=== PATIENT | female | born 1980 | race Two or more races ===

== ENCOUNTER 2016-08-28 07:08 | Outpatient (CLI) | payer MEDICAID ==
[~2016-08-28] VITALS: Ht 165.1 cm; Wt 77.7 kg
[~2016-08-28 07:08] MED LIST: ACET325T33 PO; IBUP800T25 PO; PNV1TABL43 PO
[2016-08-28 07:34] VITALS: Ht 165.1 cm; Wt 77.7 kg
[2016-08-28 07:35] VITALS: BP 121/69; PULSE 105; RESP 18
--- NOTE | 2016-08-28 08:04 | RADRPT ---
PROCEDURE: Biophysical profile. CLINICAL INDICATION: Pelvic pain. TECHNIQUE: Multiple sonographic images of the pelvis were obtained with transabdominal technique. COMPARISON: 08/25/2016. FINDINGS: There is a single living intrauterine gestation with the fetus in a vertex position. The placenta i s posterior in location, grade 1 to 2. heart tones of 154 beats per minute are identified. Th ere is low normal amniotic fluid volume with an BISI of 7.2 cm. breathing movements = 2 Gross body movements = 2 tone = 2 Qualitative AFV = 2 IMPRESSION: Biophysical profile 8 out of 8. Low normal BISI of 7.2 cm (previously measured 8.5 cm) .Young Garcia MD, Date Time Electronically viewed and signed by .Young Garcia MD, on 08/28/2016 08:04 .T/
[2016-08-28] MEDS ORDERED: LACTATED RINGER'S 1,000 ML IV* STA (08:41)
--- NOTE | 2016-08-28 10:42 | TRIAGE ---
OB Triage Datetime Report Generated by CPN: 08/28/2016 10:42 Datetime: 08/28/2016 10:22 Labor Evaluation Frequency: 0 Monitor Mode: External Duration (sec)2399: 0 Resting Tone [place]: Relaxed Heart Rate FHR Baseline Rate: 145 Monitor Mode: External US FHR Baseline Changes: No Baseline Change Variability: Moderate 6-25 bpm Accelerations: 15X15 Decelerations: None Category: Category I Vaginal Exam Membrane Status: Intact Datetime: 08/28/2016 09:36 Labor Evaluation Frequency: X3 Monitor Mode: External Duration (sec)2399: 40-50 Quality: Mild Pattern: Normal: <= 5 Contractions in 10 Minutes Resting Tone [place]: Relaxed Heart Rate FHR Baseline Rate: 150 Monitor Mode: External US FHR Baseline Changes: No Baseline Change Variability: Moderate 6-25 bpm Accelerations: 15X15 Decelerations: None Category: Category I Datetime: 08/28/2016 09:07 Labor Evaluation Frequency: 0 Monitor Mode: External Duration (sec)2399: 0 Resting Tone [place]: Relaxed Heart Rate FHR Baseline Rate: 150 Monitor Mode: External US FHR Baseline Changes: No Baseline Change Variability: Moderate 6-25 bpm Accelerations: 15X15 Decelerations: None Category: Category I Datetime: 08/28/2016 08:34 Stage of : OB Triage Maternal Assessment Level of Consciousness: Fully Conscious DTR's/Clonus: No Clonus Headache: Denies Blurred Vision: No Respiratory Effort: Unlabored Breath Sounds, Left: Clear and Equal Breath Sounds, Right: Clear and Equal Nausea/Vomiting: Denies RUQ Epigastric Pain: Denies Facial Edema: None Heart Rate FHR Baseline Rate: 150 Monitor Mode: External US FHR Baseline Changes: No Baseline Change Variability: Moderate 6-25 bpm Accelerations: 15X15 Decelerations: None Category: Category I Pain Assessment Pain Scale: 0 Pain Presence: None/Denies Pain Type: N/A Pain Goal: 0 Pain Relief Measures: Comfort Measures Vaginal Exam Membrane Status: Intact Datetime: 08/28/2016 07:36 Stage of : OB Triage Maternal Assessment Level of Consciousness: Fully Conscious DTR's/Clonus: DTRs 2+; No Clonus Headache: Denies Blurred Vision: No Respiratory Effort: Unlabored Breath Sounds, Left: Clear and Equal Breath Sounds, Right: Clear and Equal Nausea/Vomiting: Denies RUQ Epigastric Pain: Denies Facial Edema: None Labor Evaluation Frequency: 0 Monitor Mode: External Duration (sec)2399: 0 Quality: Mild Pattern: Normal: <= 5 Contractions in 10 Minutes Resting Tone [place]: Relaxed Heart Rate FHR Baseline Rate: 135 Monitor Mode: External US FHR Baseline Changes: No Baseline Change Variability: Moderate 6-25 bpm Accelerations: 15X15 Decelerations: None Category: Category I Pain Assessment Pain Scale: 0 Pain Presence: None/Denies Pain Type: N/A Pain Goal: 0 Pain Relief Measures: Comfort Measures Pain Assessment Comments: PT DENIES OF ANY UC'S @ THIS TIME Vaginal Exam Membrane Status: Intact Datetime: 08/28/2016 07:22 EGA: 34.5 Datetime: 08/28/2016 07:04 Time of Arrival: 08/28/2016 07:18 Arrived By: Ambulatory Arrived From: Home Chief Complaint: FOLLOW UP ON LOW BISI Movement: Present Contractions: Denies/Absent Rupture of Membranes: Denies Vaginal Bleeding: None Vaginal Discharge: Denies Recent Sexual Intercouse: Denies Abdominal Trauma: Not Applicable Patient Complaints: None Additional Patient Complaints: LOW BISI Time Provider Notified: 08/28/2016 07:35 Provider Notified: RIGO Initial Plan: BISI JALLOH
--- NOTE | 2016-08-28 10:45 | QN ---
Documentation Comment Laborist Dr Benavides's pt 36 y.o. A1 with an IUP at 34w 5d here for f/u on a low normal BISI. Pt had a value of 8.5. Pt was at N[facility] clinic and reports that about a week before that she had a value of 7+. No bleeding, leaking, or UC's. PMHx: none. PSHx: sental surgery only. NKDA. BP 121/69 BISI /8. BISI 7.2. NST:baseline 130-140 bpm with accels to 170 bpm. No decels. No UC's. Pt was given an IV and given a liter of LR. A: IUP at 34w 5d. Low normal BISI. P: D/C home. Return for a fluid recheck on 08/31. Encourage lots of fluids and laying on left side when at rest. LIDIA VILLA MD Aug 28, 2016 10:45
== END 2016-08-28 10:40 | disposition home or self-care (01) ==
LOC: L-D 07:08 → OBT 07:08
PROVIDERS: ATTEND Obstetrics & Gynecology
DX: O41.03X0 Oligohydramnios, third trimester, not applicable or unspecified (principal); O09.523 Supervision of elderly multigravida, third trimester; Z3A.34 34 weeks gestation of pregnancy
CPT/HCPCS: 36415; 76818; 96360; J7120; Z7500; G0463

== ENCOUNTER 2016-08-31 16:44 | Outpatient (CLI) | payer MEDICAID ==
[~2016-08-31] VITALS: Ht 165.1 cm; Wt 78.3 kg
[~2016-08-31 16:44] MED LIST changes: -ACET325T33 PO; -IBUP800T25 PO
[2016-08-31 16:58] VITALS: Ht 165.1 cm; Wt 78.3 kg
[2016-08-31] MEDS ORDERED: CALC600T11 PO (16:58)
[2016-08-31 16:59] VITALS: BP 115/65; PULSE 100
--- NOTE | 2016-08-31 17:28 | RADRPT ---
PROCEDURE: OB ultrasound for biophysical profile CLINICAL INDICATION: Biophysical profile. . TECHNIQUE: Multiple sonographic images of the pelvis were obtained. Transabdominal views are obta ined. COMPARISON: 08/28/2016 FINDINGS: Single intrauterine gestation. Presentation: Cephalic. Placenta: Fundal No evidence of placental abruption. No evidence of placenta previa. breathing movement = 2/2 tone = 2/2 motion = 2/2 BISI = 2/2 BISI = 9.2 cm; previously 7.2 cm heart rate: 171 beats per minute IMPRESSION: Single intrauterine gestation. Biophysical profile 10/19 RPTAT: AADD .Pawel Damon MD, MD Date Time Electronically viewed and signed by .Pawel Damon MD, on 08/31/2016 17:28 .B/
--- NOTE | 2016-08-31 17:51 | TRIAGE ---
OB Triage Datetime Report Generated by CPN: 08/31/2016 17:51 Datetime: 08/31/2016 16:56 Assessment Type: Triage Maternal Assessment Level of Consciousness: Fully Conscious DTR's/Clonus: DTRs 2+; No Clonus Headache: Denies Blurred Vision: No Respiratory Effort: Unlabored; Regular Rhythm; Equal Expansion Breath Sounds, Left: Clear and Equal Breath Sounds, Right: Clear and Equal Nausea/Vomiting: Denies RUQ Epigastric Pain: Denies Lower Extremities Edema: None Degree: None Upper Extremities Edema: None Degree: None Facial Edema: None Fall Risk Assessment History of Falling: (0) No Secondary Diagnosis: (0) No Ambulatory Aid: (0) Bedrest/Nurse Assist IV Therapy: (0) No Gait: (0) Normal/Bedrest/Immobile Mental Status: (0) Oriented to Own Ability Fall Score: 0 Fall Risk Score Definition: No Risk: No action required Datetime: 08/31/2016 16:53 Labor Evaluation Monitor Mode: External Heart Rate Monitor Mode: External US Datetime: 08/31/2016 16:50 Time of Arrival: 08/31/2016 16:39 EGA: 35.1 Arrived By: Ambulatory Arrived From: Home Chief Complaint: PT HERE FOM F/U BISI Movement: Present Contractions: Denies/Absent Rupture of Membranes: Denies Vaginal Bleeding: None Vaginal Discharge: Denies Recent Sexual Intercouse: Denies Abdominal Trauma: Not Applicable Patient Complaints: None Provider Notified: RIGO Initial Plan: NST/BPP Datetime: 08/28/2016 07:22 EGA: 34.5
--- NOTE | 2016-08-31 18:07 | PN ---
Triage Information Date/Time Weeks of Gestation 35+wks : 2 Para: 1 Diabetes: none Hypertention: none Objective Vital Signs Date Time Temp Pulse Resp B/P Pulse Ox O2 Delivery O2 Flow Rate FiO2 08/31/16 16:59 98.1 100 115/65 96 Room Air Heart Rate: 140's Contractions: None Assessment/Plan Reactive NST BISI 9 BPP 8/8 --RTH in 2 days for NST and BPP --Labor precautions discussed with patient MARKUS JOHNSTON M.D. Aug 31, 2016 18:07
== END 2016-08-31 17:53 | disposition home or self-care (01) ==
LOC: OBT 16:44 → L-D 16:45 → OBT 17:53
PROVIDERS: ATTEND Obstetrics & Gynecology
DX: O26.893 Other specified pregnancy related conditions, third trimester (principal); O09.523 Supervision of elderly multigravida, third trimester; Z3A.35 35 weeks gestation of pregnancy
CPT/HCPCS: 76818

== ENCOUNTER 2016-09-02 07:00 | Outpatient (CLI) | payer MEDICAID ==
[~2016-09-02] VITALS: Ht 165.1 cm; Wt 77.9 kg
[~2016-09-02 07:00] MED LIST changes: +CALC600T11 PO
[2016-09-02 07:33] VITALS: BP 111/56; PULSE 98; Ht 165.1 cm; Wt 77.9 kg
--- NOTE | 2016-09-02 08:26 | RADRPT ---
PROCEDURE: Limited OB ultrasound for BISI. CLINICAL INDICATION: Low BISI TECHNIQUE: Sonographic evaluation to assess the amniotic fluid volume was performed. Transabdomin al imaging of the gravid uterus was performed. COMPARISON: OB ultrasound 08/31/2016 FINDINGS: Single live intrauterine with cardiac activity is identified. The heart rate i s 146 bpm. The amniotic -fluid volume equals approximately 8.8 cm, within normal limits. The place nta is left lateral. The lie is cephalic. IMPRESSION: 1. Amniotic fluid volume equals 8.8 cm. RPTAT: KK .Bill Brannon MD, MD Date Time Electronically viewed and signed by .Bill Brannon MD, MD on 09/02/2016 08:25 .B/
--- NOTE | 2016-09-02 09:04 | PN ---
Triage Information Date/Time 35weeks [id number],follow up on low bisi today bisi is 8.8 bpp /8 , hydration recommended repeat BISI on09/04/16 Weeks of Gestation 35 weeks : 3 Para: 1 Diabetes: none Hypertention: none Objective Vital Signs Date Time Temp Pulse Resp B/P Pulse Ox O2 Delivery O2 Flow Rate FiO2 09/02/16 07:33 97.9 98 111/56 Heart Rate: 130's Contractions: None HARLAN SIERRA MD Sep 02, 2016 09:04
== END 2016-09-02 09:00 | disposition home or self-care (01) ==
LOC: OBT 07:00 → L-D 07:00 → OBT 09:00
PROVIDERS: ATTEND Obstetrics & Gynecology
DX: O41.03X0 Oligohydramnios, third trimester, not applicable or unspecified (principal); O09.523 Supervision of elderly multigravida, third trimester; Z3A.35 35 weeks gestation of pregnancy
CPT/HCPCS: 76815; Z7500; G0463

== ENCOUNTER 2016-09-04 07:13 | Outpatient (CLI) | payer MEDICAID ==
[~2016-09-04] VITALS: Ht 165.1 cm; Wt 78.4 kg
[2016-09-04 07:31] VITALS: BP 121/62; PULSE 73; RESP 18
[2016-09-04] MEDS ORDERED: LACTATED RINGER'S 1,000 ML IV STA (08:38)
--- NOTE | 2016-09-04 08:41 | RADRPT ---
PROCEDURE: US OB limited. CLINICAL INDICATION: Low BISI. TECHNIQUE: Multiple transabdominal sonographic images of the pelvis were obtained. COMPARISON: 09/02/2016. FINDINGS: There is a single live intrauterine in cephalic presentation with heart motion of 12 6 beats per minute. The placenta is located within the fundus and without evidence of previa or abr uption. BISI is 6.60 cm, previously 8.8 cm. IMPRESSION: Low BISI, as above. RPTAT: AA .Lauren Field MD, MD Date Time Electronically viewed and signed by .Lauren Field MD, on 09/04/2016 08:41 .T/
--- NOTE | 2016-09-04 09:30 | PN ---
Triage Information Date/Time September 04, 2016 at0 9:24 Weeks of Gestation 35 weeks 5 days : 3 Para: 1 Diabetes: none Hypertention: none Additional information Follow-up for low Bisi BISI was 8.8 2 days ago, today is 6.6 Recommended 1000 cc IV bolus, repeat BISI Objective Vital Signs Date Time Temp Pulse Resp B/P Pulse Ox O2 Delivery O2 Flow Rate FiO2 09/04/16 07:31 98.0 73 18 121/62 100 Room Air Heart Rate: 130's Contractions: None HARLAN SIERRA MD Sep 04, 2016 09:30
--- NOTE | 2016-09-04 10:25 | RADRPT ---
PROCEDURE: US OB limited. CLINICAL INDICATION: BISI follow-up. TECHNIQUE: Multiple transabdominal sonographic images of the pelvis were obtained. COMPARISON: 09/04/2016 at 0822 hours. FINDINGS: BISI currently measures 8.56 cm, previously 6.6 cm. IMPRESSION: BISI, as above. RPTAT: AA .Lauren Field MD, MD Date Time Electronically viewed and signed by .Lauren Field MD, MD on 09/04/2016 10:25 .T/
--- NOTE | 2016-09-04 10:53 | TRIAGE ---
OB Triage Datetime Report Generated by CPN: 09/04/2016 10:52 Datetime: 09/04/2016 10:35 Labor Evaluation Frequency: X2 Monitor Mode: External Duration (sec)2399: 50-60 Quality: Mild Pattern: Normal: <= 5 Contractions in 10 Minutes Resting Tone [place]: Relaxed Contraction Comments: PT REPORTS NOT FEELING CONTRACTIONS Heart Rate FHR Baseline Rate: 130 Monitor Mode: External US FHR Baseline Changes: No Baseline Change Variability: Moderate 6-25 bpm Accelerations: 15X15 Decelerations: None Pain Assessment Pain Scale: 0 Pain Presence: None/Denies Pain Type: N/A Datetime: 09/04/2016 10:33 Assessment Type: Triage Datetime: 09/04/2016 10:20 Monitor Mode: External Datetime: 09/04/2016 10:01 Maternal Assessment Level of Consciousness: Fully Conscious Headache: Denies Blurred Vision: No Nausea/Vomiting: Denies RUQ Epigastric Pain: Denies Facial Edema: None Labor Evaluation Frequency: NONE Monitor Mode: External Pattern: Normal: <= 5 Contractions in 10 Minutes Resting Tone [place]: Relaxed Contraction Comments: IRRITABILITIES Heart Rate FHR Baseline Rate: 140 Monitor Mode: External US FHR Baseline Changes: No Baseline Change Variability: Moderate 6-25 bpm Accelerations: 15X15 Decelerations: None Category: Category I Pain Assessment Pain Scale: 0 Pain Presence: None/Denies Pain Type: N/A Datetime: 09/04/2016 09:53 Monitor Mode: External Monitor Mode: External US Datetime: 09/04/2016 09:49 Assessment Type: Triage Datetime: 09/04/2016 09:33 Monitor Mode: External Datetime: 09/04/2016 09:00 Labor Evaluation Frequency: x1 Monitor Mode: External Duration (sec)2399: 60 Quality: Mild Pattern: Normal: <= 5 Contractions in 10 Minutes Resting Tone [place]: Relaxed Contraction Comments: PT REPORTS THAT SHE DID NOT FEEL CONTRACTION. Heart Rate FHR Baseline Rate: 145 Monitor Mode: External US FHR Baseline Changes: No Baseline Change Variability: Moderate 6-25 bpm Accelerations: 15X15 Decelerations: Variable Comments: Vx1 Pain Assessment Pain Scale: 0 Pain Presence: None/Denies Pain Type: N/A Datetime: 09/04/2016 08:57 Assessment Type: Triage Datetime: 09/04/2016 08:34 Monitor Mode: External Contraction Comments: REAPPLIED Monitor Mode: External US Comments: REAPPLIED Datetime: 09/04/2016 08:09 Labor Evaluation Frequency: NONE Monitor Mode: External Pattern: Normal: <= 5 Contractions in 10 Minutes Resting Tone [place]: Relaxed Contraction Comments: U/S REMOVED Heart Rate FHR Baseline Rate: 130 FHR Baseline Changes: No Baseline Change Variability: Moderate 6-25 bpm Accelerations: 15X15 Decelerations: None Comments: U/S REMOVED Datetime: 09/04/2016 07:47 Monitor Mode: External US Comments: LOSS OF CONTACT - AUDIBLE HICCUPS AND SOME MOVEMENT PER PT. Datetime: 09/04/2016 07:16 Time of Arrival: 09/04/2016 07:07 EGA: 35.5 Arrived By: Ambulatory Arrived From: Home Chief Complaint: LOW BISI Movement: Present Contractions: Denies/Absent Rupture of Membranes: Denies Vaginal Bleeding: None Vaginal Discharge: Present Recent Sexual Intercouse: Denies Abdominal Trauma: Not Applicable Patient Complaints: None Time Provider Notified: 09/04/2016 08:36 Provider Notified: DR. SIERRA Initial Plan: EFM x2, BISI Datetime: 09/02/2016 08:41 Stage of : OB Triage Datetime: 09/02/2016 08:32 Labor Evaluation Frequency: 0 Monitor Mode: External Pattern: Normal: <= 5 Contractions in 10 Minutes Resting Tone [place]: Relaxed Heart Rate FHR Baseline Rate: 135 Monitor Mode: External US Variability: Moderate 6-25 bpm Accelerations: 10X10 Decelerations: None Category: Category I Pain Assessment Pain Scale: 0 Pain Presence: None/Denies Pain Type: N/A Pain Goal: 3 Pain Relief Measures: Comfort Measures Datetime: 09/02/2016 07:28 Stage of : OB Triage Assessment Type: Triage Maternal Assessment Level of Consciousness: Fully Conscious DTR's/Clonus: DTRs 2+; No Clonus Headache: Denies Blurred Vision: No Respiratory Effort: Unlabored; Regular Rhythm; Equal Expansion Breath Sounds, Left: Clear and Equal Breath Sounds, Right: Clear and Equal Nausea/Vomiting: Denies RUQ Epigastric Pain: Denies Facial Edema: None Temperature Route: Axillary Fall Risk Assessment History of Falling: (0) No Secondary Diagnosis: (0) No Ambulatory Aid: (0) Bedrest/Nurse Assist IV Therapy: (0) No Gait: (0) Normal/Bedrest/Immobile Mental Status: (0) Oriented to Own Ability Fall Score: 0 Fall Risk Score Definition: No Risk: No action required Monitor Mode: External Resting Tone [place]: Relaxed Heart Rate FHR Baseline Rate: 145 Monitor Mode: External US Variability: Moderate 6-25 bpm Accelerations: 10X10 Decelerations: None Category: Category I Pain Assessment Pain Scale: 0 Pain Presence: None/Denies Pain Type: N/A Pain Goal: 3 Pain Relief Measures: Comfort Measures Datetime: 09/02/2016 07:24 Time of Arrival: 09/02/2016 07:00 EGA: 35.3 Arrived By: Ambulatory Arrived From: Home Chief Complaint: ORDERS FROM DRJenae OFFICE FOR REPEAT BISI DENIES BLEEDING, LEAKING OR UC'S Movement: Present Contractions: Denies/Absent Rupture of Membranes: Denies Vaginal Bleeding: None Vaginal Discharge: Denies Recent Sexual Intercouse: Denies Abdominal Trauma: Not Applicable Patient Complaints: None Time Provider Notified: 09/02/2016 08:41 Provider Notified: RIGO Initial Plan: MONITOR, BISI Datetime: 08/31/2016 16:56 Fall Score: 0 Fall Risk Score Definition: No Risk: No action required Datetime: 08/31/2016 16:50 EGA: 35.1 Datetime: 08/28/2016 07:22 EGA: 34.5
== END 2016-09-04 10:45 | disposition home or self-care (01) ==
LOC: OBT 07:13 → L-D 07:13 → OBT 10:45
PROVIDERS: ATTEND Obstetrics & Gynecology
DX: O41.8X30 Other specified disorders of amniotic fluid and membranes, third trimester, not applicable or unspecified (principal); Z3A.35 35 weeks gestation of pregnancy
CPT/HCPCS: 36415; 76815; 76816; 96360; J7120; Z7500; G0463

== ENCOUNTER 2016-09-05 07:15 | Outpatient (CLI) | payer MEDICAID ==
[~2016-09-05] VITALS: Ht 165.1 cm; Wt 78.1 kg
[2016-09-05 07:29] VITALS: BP 119/58; PULSE 103; RESP 18
[2016-09-05] MEDS ORDERED: LACTATED RINGER'S 1,000 ML IV ONE (08:30)
--- NOTE | 2016-09-05 08:32 | RADRPT ---
PROCEDURE: OB ultrasound CLINICAL INDICATION: Low BISI TECHNIQUE: Multiple transverse and longitudinal OB images of the pelvis were obtained. The images were reviewed on a high-resolution PACS workstation. COMPARISON: 09/04/2016 FINDINGS: A single live intrauterine is seen. The presentation is vertex. The placenta is grade II and fundal in location. No evidence of placenta abruption or previa is seen. The heart rate is 138 beats per minute. The amniotic fluid index is 7.9 cm. movement 2 tone 2 breathing 2 Amniotic fluid 2 IMPRESSION: Biophysical profile of 10/19. RPTAT: HPNM Physician Cedric Date Time Electronically viewed and signed by Physician Cedric on 09/05/2016 08:32 /
--- NOTE | 2016-09-05 10:43 | RADRPT ---
PROCEDURE: US evaluation of amniotic fluid volume. CLINICAL INDICATION: Low amniotic fluid volume. TECHNIQUE: Multiple sonographic images of the gravid uterus were obtained utilizing link-scale ruchi ging. Sagittal and transverse images were obtained. The images were reviewed on a PACS workstation . BISI was measured. COMPARISON: 09/04/2016. FINDINGS: There is a single live intrauterine . BISI is 9.7 cm. (Normal = 5-20 cm.) IMPRESSION: 1. BISI is 9.7 cm. RPTAT: QQ .Srikanth Alvarenga MD, MD Date Time Electronically viewed and signed by .Srikanth Alvarenga MD, on 09/05/2016 10:43 .R/
--- NOTE | 2016-09-05 12:05 | TRIAGE ---
OB Triage Datetime Report Generated by CPN: 09/05/2016 12:05 Datetime: 09/05/2016 11:17 Frequency: NONE Monitor Mode: External Pattern: Normal: <= 5 Contractions in 10 Minutes Resting Tone [place]: Relaxed FHR Baseline Rate: 135 FHR Baseline Changes: No Baseline Change Variability: Moderate 6-25 bpm Accelerations: 15X15 Decelerations: None Category: Category I Datetime: 09/05/2016 11:00 Frequency: x2 Monitor Mode: External Duration (sec)2399: 50-60 Quality: Mild Pattern: Normal: <= 5 Contractions in 10 Minutes Resting Tone [place]: Relaxed FHR Baseline Rate: 135 FHR Baseline Changes: No Baseline Change Variability: Moderate 6-25 bpm Accelerations: 15X15 Decelerations: None Datetime: 09/05/2016 09:58 Frequency: x1 Monitor Mode: External Duration (sec)2399: 60 Quality: Mild Pattern: Normal: <= 5 Contractions in 10 Minutes Resting Tone [place]: Relaxed FHR Baseline Rate: 130 Monitor Mode: External US FHR Baseline Changes: No Baseline Change Variability: Moderate 6-25 bpm Accelerations: 15X15 Decelerations: None Category: Category I Datetime: 09/05/2016 09:01 Frequency: x1 Monitor Mode: External Duration (sec)2399: 50 Quality: Mild Pattern: Normal: <= 5 Contractions in 10 Minutes Resting Tone [place]: Relaxed Contraction Comments: PT REPORTS NOT FEELING CTX FHR Baseline Rate: 135 FHR Baseline Changes: No Baseline Change Variability: Moderate 6-25 bpm Accelerations: 15X15 Decelerations: None Category: Category I Pain Scale: 0 Pain Presence: None/Denies Pain Type: N/A Datetime: 09/05/2016 09:00 Assessment Type: Triage Datetime: 09/05/2016 07:59 Frequency: x2 Monitor Mode: External Duration (sec)2399: 40-50 Quality: Mild Pattern: Normal: <= 5 Contractions in 10 Minutes Resting Tone [place]: Relaxed Contraction Comments: PT REPORTS NOT FEELING CTX FHR Baseline Rate: 135 Monitor Mode: External US FHR Baseline Changes: No Baseline Change Variability: Moderate 6-25 bpm Accelerations: 15X15 Decelerations: None Category: Category I Pain Scale: 0 Pain Presence: None/Denies Pain Type: N/A Datetime: 09/05/2016 07:37 Time of Arrival: 09/05/2016 07:04 EGA: 35.6 Arrived By: Ambulatory Arrived From: Home Chief Complaint: REPEAT BISI, NST Movement: Present Contractions: Denies/Absent Rupture of Membranes: Denies Vaginal Bleeding: None Vaginal Discharge: Denies Abdominal Trauma: Not Applicable Patient Complaints: Other Additional Patient Complaints: LOW BISI Time Provider Notified: 09/05/2016 08:27 Provider Notified: DR. SIERRA Initial Plan: EFM x2, BPP Datetime: 09/05/2016 07:20 Stage of : OB Triage Assessment Type: Triage Level of Consciousness: Fully Conscious Headache: Denies Blurred Vision: No Respiratory Effort: Unlabored; Regular Rhythm; Equal Expansion Breath Sounds, Left: Clear and Equal Breath Sounds, Right: Clear and Equal Nausea/Vomiting: Denies RUQ Epigastric Pain: Denies Lower Extremities Edema: None Degree: None Upper Extremities Edema: None Degree: None Facial Edema: None Temperature Route: Oral History of Falling: (0) No Secondary Diagnosis: (0) No Ambulatory Aid: (0) Bedrest/Nurse Assist IV Therapy: (0) No Gait: (0) Normal/Bedrest/Immobile Mental Status: (0) Oriented to Own Ability Fall Score: 0 Fall Risk Score Definition: No Risk: No action required Pain Scale: 0 Pain Presence: None/Denies Pain Type: N/A
--- NOTE | 2016-09-05 17:20 | QN ---
Documentation Comment iup 35 weeks ho of ravi oligo good FM a/p iup 35 week bpp/boo wnl dc home VIVI SANCHEZ MD Sep 05, 2016 17:19
== END 2016-09-05 11:30 | disposition home or self-care (01) ==
LOC: OBT 07:15 → L-D 07:16 → OBT 11:30
PROVIDERS: ATTEND Obstetrics & Gynecology
DX: O41.8X30 Other specified disorders of amniotic fluid and membranes, third trimester, not applicable or unspecified (principal); Z3A.35 35 weeks gestation of pregnancy
CPT/HCPCS: 36415; 76816; 76818; 96360; J7120; Z7500; G0463

== ENCOUNTER 2016-09-07 07:23 | Outpatient (CLI) | payer MEDICAID ==
[~2016-09-07] VITALS: Ht 165.1 cm; Wt 78.0 kg
--- NOTE | 2016-09-07 08:10 | RADRPT ---
PROCEDURE: OB ultrasound for biophysical profile CLINICAL INDICATION: Contractions TECHNIQUE: Multiple sonographic images of the pelvis were obtained. Transabdominal views of the g ravid uterus are available for review. The images were reviewed on a PACS workstation. COMPARISON: OB ultrasound for BISI dated 09/05/2016 FINDINGS: breathing movement = 2/2 tone = 2/2 motion = 2/2 BISI = 2/2 BISI = 6.5 cm Single live intrauterine with cardiac activity of 159 bpm. position is cephal ic. The placenta is posterior. IMPRESSION: 1. Single live intrauterine gestation. 2. Biophysical profile = 8/8. 3. BISI = 6.5 cm, decreased from 9.7 cm on the prior examination. RPTAT: HH .Macey Bah MD, Date Time Electronically viewed and signed by .Macey Bah MD, on 09/07/2016 08:09 .G/
--- NOTE | 2016-09-07 10:12 | PN ---
Triage Information Date/Time 36 years old 3 para EDC October 04 low BISI 6.5 which was down from 9.7 on September 05, planning IV bolus hydration of 1000 cc LR repeat BISI 2 hours after completion of IV Weeks of Gestation 36 weeks : 3 Para: 1 Diabetes: none Hypertention: none Additional information Monitoring BISI Objective Heart Rate: 130's Contractions: None HARLAN SIERRA MD Sep 07, 2016 10:12
[2016-09-07 10:50] VITALS: BP 121/58; PULSE 63; RESP 20
--- NOTE | 2016-09-07 12:34 | RADRPT ---
PROCEDURE: US evaluation of amniotic fluid volume. CLINICAL INDICATION: Low amniotic fluid volume. TECHNIQUE: Multiple sonographic images of the gravid uterus were obtained utilizing link-scale ruchi ging. Sagittal and transverse images were obtained. The images were reviewed on a PACS workstation . BISI was measured. COMPARISON: No prior studies are available for comparison. FINDINGS: There is a single live intrauterine . heart rate is 132 beats per minute. Position is cephalic. Placenta is fundal grade II with no abruption or previa. BISI is 8.7 cm. (Normal = 5-20 cm.) IMPRESSION: 1. BISI is 8.7 cm. RPTAT: QQ .Srikanth Alvarenga MD, MD Date Time Electronically viewed and signed by .Srikanth Alvarenga MD, on 09/07/2016 12:34 .R/
--- NOTE | 2016-09-07 19:23 | TRIAGE ---
OB Triage Datetime Report Generated by CPN: 09/07/2016 19:23 Datetime: 09/07/2016 12:15 Pain Assessment Pain Scale: 0 Pain Presence: None/Denies Pain Type: N/A Pain Goal: 0 Vaginal Exam Dilatation (cms): 0.0 Effacement (%): 0 Station: -4 Exam By: OGBODU RN Membrane Status: Intact Pool: Negative Cervix, Consistency: Firm Cervix, Position: Posterior Presentation 'A': Cephalic Datetime: 09/07/2016 12:04 Labor Evaluation Frequency: OCCASIONAL Monitor Mode: External Duration (sec)2399: 50-90 Quality: Moderate Pattern: Normal: <= 5 Contractions in 10 Minutes Resting Tone Brady: Relaxed Heart Rate FHR Baseline Rate: 125 Monitor Mode: External US Variability: Moderate 6-25 bpm Accelerations: 15X15 Decelerations: None Category: Category I Datetime: 09/07/2016 12:02 Labor Evaluation Frequency: 0 Monitor Mode: External Duration (sec)2399: 0 Resting Tone Brady: Relaxed Contraction Comments: PT DENIES UC'S Heart Rate FHR Baseline Rate: 125 Monitor Mode: External US Variability: Moderate 6-25 bpm Accelerations: 15X15 Decelerations: None Category: Category I Datetime: 09/07/2016 11:06 Labor Evaluation Frequency: 0 Duration (sec)2399: 0 Heart Rate FHR Baseline Rate: 135 Monitor Mode: External US Variability: Moderate 6-25 bpm Accelerations: 15X15 Decelerations: None Category: Category I Comments: NST REACTIVE FOR GESTATIONAL AGE Datetime: 09/07/2016 10:00 Labor Evaluation Frequency: 0 Duration (sec)2399: 0 Heart Rate FHR Baseline Rate: 135 Monitor Mode: External US Variability: Moderate 6-25 bpm Accelerations: 15X15 Decelerations: None Datetime: 09/07/2016 07:51 Stage of : OB Triage Assessment Type: Triage Maternal Assessment Level of Consciousness: Fully Conscious DTR's/Clonus: DTRs 2+; No Clonus Headache: Denies Blurred Vision: No Respiratory Effort: Unlabored; Regular Rhythm; Equal Expansion Breath Sounds, Left: Clear and Equal Breath Sounds, Right: Clear and Equal Nausea/Vomiting: Denies RUQ Epigastric Pain: Denies Lower Extremities Edema: None Upper Extremities Edema: None Facial Edema: None Temperature Route: Oral Fall Risk Assessment History of Falling: (0) No Secondary Diagnosis: (0) No Ambulatory Aid: (0) Bedrest/Nurse Assist IV Therapy: (0) No Gait: (0) Normal/Bedrest/Immobile Mental Status: (0) Oriented to Own Ability Fall Score: 0 Fall Risk Score Definition: No Risk: No action required Pain Assessment Pain Scale: 0 Pain Presence: None/Denies Pain Type: N/A Datetime: 09/05/2016 11:58 Time of Arrival: 09/07/2016 07:46 EGA: 36.1 Arrived By: Ambulatory Arrived From: Home Chief Complaint: NST, BPP, BISI Movement: Present Contractions: Denies/Absent Rupture of Membranes: Denies Vaginal Bleeding: None Vaginal Discharge: Denies Recent Sexual Intercouse: Denies Abdominal Trauma: Not Applicable Patient Complaints: None Time Provider Notified: 09/07/2016 10:10 Provider Notified: DR. SIERRA Initial Plan: BPP, NST Datetime: 09/05/2016 07:37 EGA: 35.6 Datetime: 09/05/2016 07:20 Fall Score: 0 Fall Risk Score Definition: No Risk: No action required Datetime: 09/04/2016 07:16 EGA: 35.5 Datetime: 09/02/2016 07:28 Fall Score: 0 Fall Risk Score Definition: No Risk: No action required Datetime: 09/02/2016 07:24 EGA: 35.3 Datetime: 08/31/2016 16:56 Fall Score: 0 Fall Risk Score Definition: No Risk: No action required Datetime: 08/31/2016 16:50 EGA: 35.1 Datetime: 08/28/2016 07:22 EGA: 34.5
== END 2016-09-07 14:47 | disposition home or self-care (01) ==
LOC: L-D 07:23 → OBT 07:23 → L-D 07:24 → OBT 14:47
PROVIDERS: ATTEND Obstetrics & Gynecology
DX: O41.8X30 Other specified disorders of amniotic fluid and membranes, third trimester, not applicable or unspecified (principal); Z3A.35 35 weeks gestation of pregnancy
CPT/HCPCS: 36415; 76816; 76818; 84112; Z7500; G0463

== ENCOUNTER 2016-09-08 14:46 | Outpatient (CLI) | payer MEDICAID ==
[~2016-09-08] VITALS: Ht 165.1 cm; Wt 78.4 kg
[2016-09-08 14:53] VITALS: Ht 165.1 cm; Wt 78.4 kg
[2016-09-08 14:54] VITALS: BP 120/64; PULSE 20; RESP 20
--- NOTE | 2016-09-08 15:30 | RADRPT ---
PROCEDURE: US biophysical profile. CLINICAL INDICATION: Low amniotic fluid volume. TECHNIQUE: Multiple sonographic images of the uterus were obtained. The images were revi ewed on a PACS workstation. COMPARISON: 09/07/2016. FINDINGS: There is a single live intrauterine gestation. heart rate is 150 beats per minute. The position is cephalic. The placenta is posterior grade II with no abruption or previa. The BISI is 9.6 cm. (Normal = 5-20 cm.) Breathing Movement: 2 Gross Body Movement: 2 Tone: 2 Qualitative Amniotic Fluid Volume: 2 TOTAL: 8 IMPRESSION: 1. The biophysical score is 8/8. RPTAT: QQ .Srikanth Alvarenga MD, Date Time Electronically viewed and signed by .Srikanth Alvarenga MD, on 09/08/2016 15:30 .R/
--- NOTE | 2016-09-08 16:53 | PN ---
Triage Information Date/Time 09/08/2016 Weeks of Gestation 35 weeks and 4 days : 3 Para: 1 Diabetes: none Hypertention: none Additional information 36 years old with IUP at 36 weeks and 2 days with history of low BISI noted during Ob ultrasound, here today for follow up of BISI. Was seen about 2 days ago in Triage and was noted to have BISI 6.5 and increased to 8.7 with hydration. Here today for follow up of BISI Denies any LOF, vaginal bleeding, decreased movement. Denies any other complaint. Objective Vital Signs Date Time Temp Pulse Resp B/P Pulse Ox O2 Delivery O2 Flow Rate FiO2 09/08/16 14:54 97.8 20 20 120/64 Room Air Heart Rate: 130's Contractions: None Exam GA: A&O, NAD Abdomen: soft, non tender, gravid. fundal Height consistent with GA BISI: 9.6 today after IV hydration NST: Cat 1 tracing Assessment/Plan IUP at 36 weeks and 2 days History of oligohydramnios Following with repeat BISI BISI today is normal Asymptomatic DC home Follow up in 2 days with triage for repeat BISI PTL precaution and kick counts discussed VINNY HAYS MD Sep 08, 2016 16:53
--- NOTE | 2016-09-08 18:38 | TRIAGE ---
OB Triage Datetime Report Generated by CPN: 09/08/2016 18:38 Datetime: 09/08/2016 16:00 Frequency: X1 Monitor Mode: External Duration (sec)2399: 80 Quality: Mild Pattern: Normal: <= 5 Contractions in 10 Minutes Resting Tone [place]: Relaxed FHR Baseline Rate: 120 Monitor Mode: External US FHR Baseline Changes: No Baseline Change Variability: Moderate 6-25 bpm Accelerations: 15X15 Decelerations: None Category: Category I Pain Scale: 0 Pain Presence: None/Denies Pain Type: N/A Pain Goal: 0 Datetime: 09/08/2016 15:18 Frequency: X3 Monitor Mode: External Duration (sec)2399: 30-80 Quality: Mild Pattern: Normal: <= 5 Contractions in 10 Minutes Resting Tone [place]: Relaxed FHR Baseline Rate: 130 Monitor Mode: External US FHR Baseline Changes: No Baseline Change Variability: Moderate 6-25 bpm Accelerations: 15X15 Decelerations: None Category: Category I Pain Scale: 0 Pain Presence: None/Denies Pain Type: N/A Pain Goal: 2 Datetime: 09/08/2016 14:55 Stage of : OB Triage Assessment Type: Triage Level of Consciousness: Fully Conscious Headache: Denies Blurred Vision: No Respiratory Effort: Unlabored; Regular Rhythm; Equal Expansion Nausea/Vomiting: Denies RUQ Epigastric Pain: Denies Lower Extremities Edema: None Degree: None Upper Extremities Edema: None Degree: None Facial Edema: None Temperature Route: Axillary History of Falling: (0) No Secondary Diagnosis: (0) No Ambulatory Aid: (0) Bedrest/Nurse Assist IV Therapy: (0) No Gait: (0) Normal/Bedrest/Immobile Mental Status: (0) Oriented to Own Ability Fall Score: 0 Fall Risk Score Definition: No Risk: No action required Datetime: 09/08/2016 14:51 Monitor Mode: External Monitor Mode: External US Datetime: 09/08/2016 14:50 Time of Arrival: 09/08/2016 14:45 EGA: 36.2 Arrived By: Ambulatory Arrived From: Home Chief Complaint: follow up boo Movement: Present Rupture of Membranes: Denies Vaginal Bleeding: None Vaginal Discharge: Denies Recent Sexual Intercouse: Denies Abdominal Trauma: Not Applicable Patient Complaints: None Time Provider Notified: 09/08/2016 15:55 Provider Notified: DR. SEIRRA Initial Plan: DENG RODRIGUEZ
== END 2016-09-08 16:25 | disposition home or self-care (01) ==
LOC: OBT 14:46 → L-D 14:47 → OBT 16:25
PROVIDERS: ATTEND Obstetrics & Gynecology
DX: O41.8X30 Other specified disorders of amniotic fluid and membranes, third trimester, not applicable or unspecified (principal); Z3A.35 35 weeks gestation of pregnancy
CPT/HCPCS: 76818; Z7500; G0463

== ENCOUNTER 2016-09-10 15:52 | Outpatient (CLI) | payer MEDICAID ==
[~2016-09-10] VITALS: Ht 165.1 cm; Wt 79.0 kg
[2016-09-10 16:43] VITALS: Ht 165.1 cm; Wt 79.0 kg
[2016-09-10 16:44] VITALS: BP 137/65; PULSE 90; RESP 20
--- NOTE | 2016-09-10 17:19 | RADRPT ---
PROCEDURE: US biophysical profile. CLINICAL INDICATION: Lower BISI. well-being. TECHNIQUE: Multiple sonographic images of the uterus were obtained. The images were revi ewed on a PACS workstation. COMPARISON: 09/08/2016. FINDINGS: There is a single live intrauterine gestation. heart rate is 137 beats per minute. The position is cephalic. The placenta is fundal posterior, grade 1. The BISI is 7.1 cm (Normal = 5-20 cm.) Breathing Movement: 2 Gross Body Movement: 2 Tone: 2 Qualitative Amniotic Fluid Volume: 2 TOTAL: 8 IMPRESSION: 1. Single viable intrauterine gestation. 2. Biophysical profile = 8/8. 3. BISI = 7.1 cm which is lower limits of normal. RPTAT: QQ .Jonny Baeza MD, MD Date Time Electronically viewed and signed by .Jonny Baeza MD, MD on 09/10/2016 17:19 .N/
--- NOTE | 2016-09-10 18:53 | TRIAGE ---
OB Triage Datetime Report Generated by CPN: 09/10/2016 18:52 Datetime: 09/10/2016 18:38 Monitor Mode: External US FHR Baseline Changes: No Baseline Change Variability: Moderate 6-25 bpm Accelerations: 15X15 Decelerations: None Category: Category II Datetime: 09/10/2016 16:51 Comments: BISI 7.1 CM Datetime: 09/10/2016 16:38 Stage of : OB Triage Maternal Assessment Level of Consciousness: Fully Conscious DTR's/Clonus: DTRs 2+; No Clonus Headache: Denies Blurred Vision: No Respiratory Effort: Unlabored; Regular Rhythm; Equal Expansion Breath Sounds, Left: Clear and Equal Breath Sounds, Right: Clear and Equal Nausea/Vomiting: Denies RUQ Epigastric Pain: Denies Lower Extremities Edema: None Upper Extremities Edema: None Facial Edema: None Temperature Route: Oral Fall Risk Assessment History of Falling: (0) No Secondary Diagnosis: (0) No Ambulatory Aid: (0) Bedrest/Nurse Assist IV Therapy: (0) No Gait: (0) Normal/Bedrest/Immobile Mental Status: (0) Oriented to Own Ability Fall Score: 0 Fall Risk Score Definition: No Risk: No action required Labor Evaluation Frequency: 0 Monitor Mode: External Heart Rate FHR Baseline Rate: 135 Monitor Mode: External US Variability: Moderate 6-25 bpm Accelerations: 15X15 Decelerations: None Category: Category I Datetime: 09/10/2016 16:29 Time of Arrival: 09/10/2016 16:30 EGA: 36.4 Arrived By: Ambulatory Arrived From: Home Chief Complaint: BISI/BPP; HX LOW BISI Movement: Present Contractions: Denies/Absent Rupture of Membranes: Denies Vaginal Bleeding: None Vaginal Discharge: Denies Recent Sexual Intercouse: Denies Abdominal Trauma: Not Applicable Patient Complaints: None Time Provider Notified: 09/10/2016 17:40 Provider Notified: GEOVANNY Initial Plan: NST/BPP/BISI Datetime: 09/08/2016 14:55 Fall Score: 0 Fall Risk Score Definition: No Risk: No action required Datetime: 09/08/2016 14:50 EGA: 36.2 Datetime: 09/07/2016 07:51 Fall Score: 0 Fall Risk Score Definition: No Risk: No action required Datetime: 09/05/2016 11:58 EGA: 36.1 Datetime: 09/05/2016 07:37 EGA: 35.6 Datetime: 09/05/2016 07:20 Fall Score: 0 Fall Risk Score Definition: No Risk: No action required Datetime: 09/04/2016 07:16 EGA: 35.5 Datetime: 09/02/2016 07:28 Fall Score: 0 Fall Risk Score Definition: No Risk: No action required Datetime: 09/02/2016 07:24 EGA: 35.3 Datetime: 08/31/2016 16:56 Fall Score: 0 Fall Risk Score Definition: No Risk: No action required Datetime: 08/31/2016 16:50 EGA: 35.1 Datetime: 08/28/2016 07:22 EGA: 34.5
--- NOTE | 2016-09-10 18:56 | CONS ---
Date/Time of Note Date/Time of Note DATE: 09/10/16 TIME: 18:52 Consultation Date/Type/Reason Admit Date/Time September 10, 2016 OB triage consult Reason for Consultation This patient is a 26 years old 3 para 1 1 living 1 Came to OB triage complaining of low BISI activity for the follow-up with a history of BISI On general examination her vital signs are normal with blood pressure of 137/65 , and then again 112/60, pulse rate 90, respirations 20, and temperature 98 heart rate was 135 heart tracing is excellent with good variability accelerations no decelerations Constitutional: chills, diaphoresis, disoriented, febrile, improved, no complaints, other, poor po, requiring IVF, requiring O2 Eyes: discharge, no complaints, other, pain, redness, visual change ENT: bleeding, congestion, discharge, dysphagia, no complaints, other, pain, sore throat Respiratory: cough, no complaints, other, pain, pleuritic pain, shortness of breath, sputum, wheezing Cardiovascular: chest pain, edema, lightheadedness, no complaints, orthopenea, other, palpitations, paroxysmal nocturnal dyspnea Gastrointestinal: blood, constipation, decreased appetite, diarrhea, flatus, nausea, no complaints, other, pain, passing stool, vomiting Genitourinary: bleeding, discharge, dysuria, flank pain, hematuria, no complaints, other (Pelvic exam was not performed due to the fact that she did not have any contractions) Musculoskeletal: No back pain, No bone/joint pain, No neck pain, No no complaints, No other, No restricted range of motion, No swelling Skin: No bruising, No erythema, No laceration, No no complaints, No other, No pruritis, No rash, No skin lesions Neurologic: No confusion, No dizziness, No focal-weakness, No headache, No no complaints, No other, No seizure, No syncope Endocrine: No dry skin, No no complaints, No other, No polydypsia, No polyuria , No temp intolerance Additional Comments On ultrasound study it was reported as a single live intrauterine gestation with heart rate of 137 bpm cephalic presentation central fundal posterior grade 1 BISI was 7.1 cm her biophysical was reported 10/19 Disposition this information was conveyed to the patient she understands all of those and will return for follow-up in 4 days she is advised to do kick count at home also Social History Smoking Status: Never smoker Exam/Review of Systems Vital Signs Vitals Vital Signs Date Time Temp Pulse Resp B/P Pulse Ox O2 Delivery O2 Flow Rate FiO2 09/10/16 16:44 98.0 90 20 137/65 Room Air ERIC SMALL MD Sep 10, 2016 18:56
== END 2016-09-10 18:45 | disposition home or self-care (01) ==
LOC: OBT 15:52 → L-D 15:53 → OBT 18:45
PROVIDERS: ATTEND Obstetrics & Gynecology
DX: O41.93X0 Disorder of amniotic fluid and membranes, unspecified, third trimester, not applicable or unspecified (principal); Z3A.36 36 weeks gestation of pregnancy
CPT/HCPCS: 76818; Z7500; G0463

== ENCOUNTER 2016-09-13 07:04 | Outpatient (CLI) | payer MEDICAID ==
[~2016-09-13] VITALS: Ht 165.1 cm; Wt 77.8 kg
[2016-09-13 07:33] VITALS: Ht 165.1 cm; Wt 77.8 kg
--- NOTE | 2016-09-13 08:25 | RADRPT ---
PROCEDURE: OB ultrasound for biophysical profile CLINICAL INDICATION: Low BISI TECHNIQUE: Multiple sonographic images of the pelvis were obtained. Transabdominal views of the g ravid uterus are available for review. The images were reviewed on a PACS workstation. COMPARISON: None FINDINGS: breathing movement = 2/2 tone = 2/2 motion = 2/2 BISI = 2/2 BISI = 7.0 cm Single live intrauterine with cardiac activity of 148 bpm. position is cephal ic. The placenta is posterior. IMPRESSION: 1. Single live intrauterine gestation. 2. Biophysical profile = 8/8. 3. BISI = 7.0 cm. RPTAT: HH .Macey Bah MD, MD Date Time Electronically viewed and signed by .Macey Bah MD, on 09/13/2016 08:25 .G/
[2016-09-13] MEDS ORDERED: LACTATED RINGER'S 1,000 ML IV ONE (09:30)
[2016-09-13] MEDS ORDERED: LACTATED RINGER'S 1,000 ML IV SCH (09:30)
--- NOTE | 2016-09-13 13:13 | RADRPT ---
PROCEDURE: Limited OB ultrasound for BISI. CLINICAL INDICATION: Low BISI TECHNIQUE: Sonographic evaluation to assess the amniotic fluid volume was performed. Transabdomin al imaging of the gravid uterus was performed. COMPARISON: OB ultrasound 09/13/2016. FINDINGS: Single live intrauterine with cardiac activity is identified. The heart rate i s 136 bpm. The amniotic -fluid volume equals approximately 10.1 cm, within normal limits. The plac enta is posterior. The lie is cephalic. IMPRESSION: 1. Amniotic fluid volume equals 10.1 cm. RPTAT: KK .Bill Brannon MD, MD Date Time Electronically viewed and signed by .Bill Brannon MD, MD on 09/13/2016 13:12 .B/
--- NOTE | 2016-09-13 14:09 | QN ---
Documentation Comment iup 37 weeks ho of ravi oligo vss us wnl a/p iup 37 weeks false labor dc [place] VIVI SANCHEZ MD Sep 13, 2016 14:08
== END 2016-09-13 14:05 | disposition home or self-care (01) ==
LOC: OBT 07:04 → L-D 07:06 → OBT 14:05
PROVIDERS: ATTEND Obstetrics & Gynecology
DX: O47.1 False labor at or after 37 completed weeks of gestation (principal); Z3A.37 37 weeks gestation of pregnancy
CPT/HCPCS: 36415; 76815; 76818; 96360; 96361; J7120; Z7500; G0463

== ENCOUNTER 2016-09-29 05:32 | Outpatient (CLI) | payer MEDICAID ==
[~2016-09-29] VITALS: Ht 165.1 cm; Wt 77.7 kg
[2016-09-29 06:01] VITALS: BP 118/61; PULSE 93; RESP 18
--- NOTE | 2016-09-29 08:43 | RADRPT ---
PROCEDURE: Biophysical profile CLINICAL INDICATION: distress, contractions TECHNIQUE: Color and link-scale ultrasound images of an intrauterine gestation were obtained. COMPARISON: September 13, 2016 FINDINGS: A single live intrauterine gestation is identified in cephalic position with an estimated hear t rate of 120 beats per minute. The placenta is located posteriorly and has a grade of 2. The cerv ix is obscured by head shadows. No evidence of abruption identified. BISI is 8.8 cm. movement 2/2. tone 2/2. breathing movement 2/2. Qualitative AFV 2/2 Total biophysical profile 10/19 IMPRESSION: 10/19 biophysical profile. RPTAT: AA .Javier Arriaza MD, Date Time Electronically viewed and signed by .Javier Arriaza MD, on 09/29/2016 08:43 .P/
[2016-09-29] MEDS ORDERED: LACTATED RINGER'S 1,000 ML IV ONE (10:30)
--- NOTE | 2016-09-29 11:03 | RADRPT ---
PROCEDURE: Limited OB ultrasound for BISI. CLINICAL INDICATION: Low BISI TECHNIQUE: Sonographic evaluation to assess the amniotic fluid volume was performed. Transabdomin al imaging of the gravid uterus was performed. COMPARISON: OB ultrasound 09/29/2016 FINDINGS: Single live intrauterine with cardiac activity is identified. The heart rate i s 124 bpm. The amniotic -fluid volume equals approximately 9.6 cm. The placenta is posterior. The lie is cephalic. IMPRESSION: 1. Amniotic fluid volume equals 9.6 cm. RPTAT: KK .Bill Brannon MD, MD Date Time Electronically viewed and signed by .Bill Brannon MD, on 09/29/2016 11:03 .B/
--- NOTE | 2016-09-29 11:29 | TRIAGE ---
OB Triage Datetime Report Generated by CPN: 09/29/2016 11:29 Datetime: 09/29/2016 08:04 Vaginal Exam Dilatation (cms): 1.5 Effacement (%): 50 Station: -2 Exam By: RIGO Vaginal Bleeding: None Cervix, Consistency: Moderate Cervix, Position: Midposition Datetime: 09/29/2016 08:00 Stage of : OB Triage Labor Evaluation Frequency: NONE Monitor Mode: External Datetime: 09/29/2016 07:23 Assessment Type: Triage Maternal Assessment Level of Consciousness: Fully Conscious DTR's/Clonus: DTRs 2+; No Clonus Headache: Denies Blurred Vision: No Respiratory Effort: Unlabored; Regular Rhythm; Equal Expansion Breath Sounds, Left: Clear and Equal Breath Sounds, Right: Clear and Equal Nausea/Vomiting: Denies RUQ Epigastric Pain: Denies Lower Extremities Edema: None Degree: None Upper Extremities Edema: None Degree: None Facial Edema: None Fall Risk Assessment History of Falling: (0) No Secondary Diagnosis: (0) No Ambulatory Aid: (0) Bedrest/Nurse Assist IV Therapy: (0) No Gait: (0) Normal/Bedrest/Immobile Mental Status: (0) Oriented to Own Ability Fall Score: 0 Fall Risk Score Definition: No Risk: No action required Datetime: 09/29/2016 06:45 Stage of : OB Triage Datetime: 09/29/2016 06:17 Stage of : OB Triage Labor Evaluation Frequency: 3-6 Monitor Mode: External Quality: Moderate Pattern: Normal: <= 5 Contractions in 10 Minutes Resting Tone [place]: Relaxed Heart Rate FHR Baseline Rate: 130 Monitor Mode: External US FHR Baseline Changes: No Baseline Change Variability: Moderate 6-25 bpm Accelerations: 15X15 Decelerations: None Category: Category I Vaginal Exam Dilatation (cms): 2.0 Effacement (%): 50 Station: -2 Exam By: Selvin Sr Membrane Status: Intact Vaginal Bleeding: Scant Cervix, Consistency: Soft Cervix, Position: Posterior Presentation 'A': Cephalic Datetime: 09/29/2016 06:06 Time of Arrival: 09/29/2016 05:25 EGA: 39.2 Arrived By: Wheelchair Arrived From: Home Chief Complaint: w/ c/o ucs and discharge Movement: Present Contractions: Irregular Time Contractions Began: 09/29/2016 01:00 Contractions: q20 Rupture of Membranes: Denies Vaginal Bleeding: None Vaginal Discharge: Present Recent Sexual Intercouse: Denies Abdominal Trauma: Not Applicable Patient Complaints: Contractions Time Provider Notified: 09/29/2016 06:43 Provider Notified: DELSHAD Initial Plan: EFM, SVE, BPP Datetime: 09/29/2016 05:44 Stage of : OB Triage Maternal Assessment Level of Consciousness: Fully Conscious Headache: Denies Blurred Vision: No Respiratory Effort: Unlabored Nausea/Vomiting: Denies RUQ Epigastric Pain: Denies Facial Edema: None Labor Evaluation Frequency: placed Monitor Mode: External Resting Tone [place]: Relaxed Heart Rate FHR Baseline Rate: 130 Monitor Mode: External US Pain Assessment Pain Scale: 7 Pain Presence: Intermittent Pain Type: Contraction Pain Location: Abdomen Datetime: 09/13/2016 13:54 Stage of : OB Triage Datetime: 09/13/2016 13:34 Labor Evaluation Frequency: 0 Monitor Mode: External Resting Tone [place]: Relaxed Heart Rate FHR Baseline Rate: 135 Monitor Mode: External US Variability: Moderate 6-25 bpm Accelerations: 10X10 Decelerations: None Category: Category I Pain Assessment Pain Scale: 0 Pain Presence: None/Denies Pain Type: N/A Pain Goal: 3 Pain Relief Measures: Comfort Measures Datetime: 09/13/2016 12:29 Labor Evaluation Frequency: 6-8 Monitor Mode: External Duration (sec)2399: 50-70 Quality: Mild Resting Tone [place]: Relaxed Heart Rate FHR Baseline Rate: 125 Monitor Mode: External US Variability: Moderate 6-25 bpm Accelerations: 10X10 Decelerations: None Category: Category I Pain Assessment Pain Scale: 0 Pain Presence: None/Denies Pain Type: N/A Pain Goal: 3 Pain Relief Measures: Comfort Measures Datetime: 09/13/2016 11:32 Labor Evaluation Frequency: 6-9 Monitor Mode: External Duration (sec)2399: 40-60 Pattern: Normal: <= 5 Contractions in 10 Minutes Resting Tone [place]: Relaxed Heart Rate FHR Baseline Rate: 125 Monitor Mode: External US Variability: Moderate 6-25 bpm Accelerations: 10X10 Decelerations: None Category: Category I Pain Assessment Pain Scale: 0 Pain Presence: None/Denies Pain Type: N/A Pain Goal: 3 Pain Relief Measures: Comfort Measures Datetime: 09/13/2016 10:30 Labor Evaluation Frequency: 0 Monitor Mode: External Resting Tone [place]: Relaxed Heart Rate FHR Baseline Rate: 125 Monitor Mode: External US Variability: Moderate 6-25 bpm Accelerations: 10X10 Decelerations: None Category: Category I Pain Assessment Pain Scale: 0 Pain Presence: None/Denies Pain Type: N/A Pain Goal: 3 Pain Relief Measures: Comfort Measures Datetime: 09/13/2016 09:29 Labor Evaluation Frequency: IRREG Monitor Mode: External Duration (sec)2399: 30-50 Resting Tone [place]: Relaxed Heart Rate FHR Baseline Rate: 135 Monitor Mode: External US Variability: Moderate 6-25 bpm Accelerations: 10X10 Decelerations: None Category: Category I Pain Assessment Pain Scale: 0 Pain Presence: None/Denies Pain Type: N/A Pain Goal: 3 Pain Relief Measures: Comfort Measures Datetime: 09/13/2016 09:10 Stage of : OB Triage Datetime: 09/13/2016 08:30 Labor Evaluation Frequency: OCCAS Monitor Mode: External Duration (sec)2399: 40-50 Pattern: Normal: <= 5 Contractions in 10 Minutes Resting Tone [place]: Relaxed Heart Rate FHR Baseline Rate: 135 Monitor Mode: External US Variability: Moderate 6-25 bpm Accelerations: 15X15 Decelerations: None Category: Category I Pain Assessment Pain Scale: 0 Pain Presence: None/Denies Pain Type: N/A Pain Location: Abdomen Pain Goal: 3 Pain Relief Measures: Comfort Measures Datetime: 09/13/2016 07:30 Stage of : OB Triage Assessment Type: Triage Maternal Assessment Level of Consciousness: Fully Conscious DTR's/Clonus: DTRs 2+; No Clonus Headache: Denies Blurred Vision: No Respiratory Effort: Unlabored; Regular Rhythm; Equal Expansion Breath Sounds, Left: Clear and Equal Breath Sounds, Right: Clear and Equal Nausea/Vomiting: Denies RUQ Epigastric Pain: Denies Facial Edema: None Temperature Route: Axillary Fall Risk Assessment History of Falling: (0) No Secondary Diagnosis: (0) No Ambulatory Aid: (0) Bedrest/Nurse Assist IV Therapy: (0) No Gait: (0) Normal/Bedrest/Immobile Mental Status: (0) Oriented to Own Ability Fall Score: 0 Fall Risk Score Definition: No Risk: No action required Labor Evaluation Frequency: 0 Monitor Mode: External Resting Tone [place]: Relaxed Heart Rate FHR Baseline Rate: 135 Monitor Mode: External US Variability: Moderate 6-25 bpm Decelerations: None Pain Assessment Pain Scale: 0 Pain Presence: None/Denies Pain Goal: 3 Pain Relief Measures: Comfort Measures Datetime: 09/13/2016 07:29 Time of Arrival: 09/13/2016 07:02 EGA: 37.0 Arrived By: Ambulatory Arrived From: Home Chief Complaint: F/U NST/BISI FOR LOW FLUID Movement: Present Contractions: Denies/Absent Rupture of Membranes: Denies Vaginal Bleeding: None Vaginal Discharge: Denies Recent Sexual Intercouse: Denies Abdominal Trauma: Not Applicable Patient Complaints: None Additional Patient Complaints: HX OF LOW BISI LAST BISI 7.1 CM Time Provider Notified: 09/13/2016 09:10 Provider Notified: RIGO Initial Plan: MONITOR, BPP/BISI Datetime: 09/10/2016 16:38 Fall Score: 0 Fall Risk Score Definition: No Risk: No action required Datetime: 09/10/2016 16:29 EGA: 36.4 Datetime: 09/08/2016 14:55 Fall Score: 0 Fall Risk Score Definition: No Risk: No action required Datetime: 09/08/2016 14:50 EGA: 36.2 Datetime: 09/07/2016 07:51 Fall Score: 0 Fall Risk Score Definition: No Risk: No action required Datetime: 09/05/2016 11:58 EGA: 36.1 Datetime: 09/05/2016 07:37 EGA: 35.6 Datetime: 09/05/2016 07:20 Fall Score: 0 Fall Risk Score Definition: No Risk: No action required Datetime: 09/04/2016 07:16 EGA: 35.5 Datetime: 09/02/2016 07:28 Fall Score: 0 Fall Risk Score Definition: No Risk: No action required Datetime: 09/02/2016 07:24 EGA: 35.3 Datetime: 08/31/2016 16:56 Fall Score: 0 Fall Risk Score Definition: No Risk: No action required Datetime: 08/31/2016 16:50 EGA: 35.1 Datetime: 08/28/2016 07:22 EGA: 34.5
== END 2016-09-29 11:27 | disposition home or self-care (01) ==
LOC: OBT 05:32 → L-D 05:33 → OBT 11:27
PROVIDERS: ATTEND Obstetrics & Gynecology
DX: O47.1 False labor at or after 37 completed weeks of gestation (principal); Z3A.38 38 weeks gestation of pregnancy
CPT/HCPCS: 36415; 76816; 76818; 96360; J7120; Z7500; G0463

== ENCOUNTER 2016-10-01 17:19 | Emergency (ER) | payer MEDICAID ==
[~2016-10-01] VITALS: Ht 152.4 cm; Wt 78.0 kg
[2016-10-01 17:21] VITALS: Ht 152.4 cm; Wt 78.0 kg
--- NOTE | 2016-10-01 22:46 | ERD ---
ER Documentation Chief Complaint Date/Time DATE: 10/01/16 TIME: 22:37 Chief Complaint SOB X 3 DAYS; 39 WEEKS PREG DENIES ANY PELVIC PAIN OR BLEEDING HPI This 36-year-old 39 week 2 cm dilated female presents to emergency department with cough, and shortness of breath 3 days. Patient describes cough as an itchiness in her chest. Denies history of asthma, denies cough is productive. Patient reports that she called her administrative hearing officer was instructed to come to emergency department for evaluation, patient denies history of asthma, fever, chills, vaginal bleeding or discharge. Reports no change in movement. ROS All systems reviewed and are negative except as per history of present illness. Medications Home Meds Reported Medications Calcium Carbonate* (Calcium Carbonate*) 600 MG Ca Tab, 600 MG PO DAILY, TAB 08/31/16 Vit/Fe Fumarate/Fa* ( Vitamin Tablet*) 1 Tab Tablet, 1 TAB PO DAILY, TAB 10/10/14 Allergies Allergies: Coded Allergies: apple (Verified Allergy, Unknown, RASH, 09/29/16) RAW APPLE PMhx/Soc Hx Alcohol Use: No Hx Substance Use: No Hx Tobacco Use: No Smoking Status: Never smoker Physical Exam Vitals Vital Signs Date Time Temp Pulse Resp B/P Pulse Ox O2 Delivery O2 Flow Rate FiO2 10/01/16 17:21 98.0 111 18 129/77 99 Vitals stable, triage notes reviewed Physical Exam Const: Well-appearing, well-nourished, well-hydrated Head: Atraumatic Eyes: Normal Conjunctiva PERRLA, EOM ENT: Normal External Ears, Nose and Mouth mucous membranes moist. Neck: Resp: Clear to auscultation bilaterally no rales wheezes or rhonchi, no respiratory distress Cardio: Regular rate and rhythm, no murmurs S1, S2, no S3-S4 Abd: 's abdomen Skin: Back: No midline or flank tenderness Ext: No cyanosis, or edema Neur: Awake and alert Psych: Normal Mood and Affect Procedures/MDM 36-year-old female presents to emergency department for shortness of breath. Patient is 39 weeks 2 cm dilated and was transferred up to labor and delivery for evaluation before treatment of suspected viral infection. Departure Diagnosis: Primary Impression: URI, acute Additional Impression: 39 weeks gestation of Comments Patient transferred to labor and delivery with transport tank technician. Chart review shows that plans to treat patient for upper respiratory infection, seasonal allergy with Robitussin-DM and antihistamine patient has low BISI and will remain under physician care until discharge, patient will not come back to emergency department for treatment. ZAFAR CHEN Oct 01, 2016 22:46
== END 2016-10-01 17:38 | disposition home or self-care (01) ==
LOC: FTE 17:19
DX: O99.513 Diseases of the respiratory system complicating pregnancy, third trimester (principal); J06.9 Acute upper respiratory infection, unspecified; Z3A.39 39 weeks gestation of pregnancy
CPT/HCPCS: 99282

== ENCOUNTER 2016-10-01 18:06 | Inpatient (IN) | payer MEDICAID ==
[~2016-10-01] VITALS: Ht 165.1 cm; Wt 78.8 kg
[2016-10-01 18:19] VITALS: BP 121/72; PULSE 103; RESP 18
[2016-10-01 18:20] VITALS: Ht 165.1 cm; Wt 78.8 kg
--- NOTE | 2016-10-01 19:18 | PN ---
Triage Information Date/Time 36 years old 3 para 1 39 weeks 4 day came to triage unit due to cough her vital signs BP 121/72 pulse 103 respiration 18 temperature 90 7. lungs clear to P&A, it seems her cough is mostly due to seasonal allergy, a prescription of cough medication Robitussin-DM and antihistamine given since patient has low BISI and she was due to repeat the a.m. recommended NST and BISI today' Weeks of Gestation 39 weeks 4 days : 3 Para: 1 Diabetes: none Additional information She is being followed for low BISI she will undergo NST and biophysical profile today Objective Vital Signs Date Time Temp Pulse Resp B/P Pulse Ox O2 Delivery O2 Flow Rate FiO2 10/01/16 18:19 97.8 103 18 121/72 98 Room Air Assessment/Plan Dry cough most likely allergic HARLAN SIERRA MD Oct 01, 2016 19:16
--- NOTE | 2016-10-01 19:24 | RADRPT ---
PROCEDURE: US OB biophysical profile. CLINICAL INDICATION: evaluation TECHNIQUE: Multiple sonographic images of the pelvis were obtained. The images were reviewed on a PACS workstation. COMPARISON: Obstetrical ultrasound from 09/29/2016 FINDINGS: There is a single viable intrauterine gestation. Cardiac activity is present with 116 beats per min george. There is a vertex presentation. The placenta is fundal. There is no evidence of placental abruption. There is a low amount of amniotic fluid with an BISI = 5.5 cm. Biophysical profile: movement 2/2 tone 2/2. breathing 2/2 BISI 2/2 Total 10/19 RPTAT: AA . IMPRESSION: Normal biophysical profile. Low BISI of 5.5 cm. Physician Jorge Date Time Electronically viewed and signed by Physician Jorge on 10/01/2016 19:24 /
[2016-10-01] MEDS ORDERED: METHYLERGONOVINE 0.2 MG INJ IM PRN (20:00)
[2016-10-01] MEDS ORDERED: DINOPROSTONE 10 MG VAG SUPP VAG ONE (20:00)
[2016-10-01] MEDS ORDERED: LACTATED RINGER'S 1,000 ML IV PRN (20:00)
[2016-10-01] MEDS ORDERED: OXYTOCIN 30 UNITS/LR 500 ML IV PRN (20:00)
[2016-10-01] MEDS ORDERED: MISOPROSTOL 200 MCG TAB PR PRN (20:00)
[2016-10-01] MEDS ORDERED: MINERAL OIL LIGHT 10 ML VIAL TOP ONE (20:00)
[2016-10-01] MEDS ORDERED: IBUPROFEN 600 MG TAB PO PRN (20:00)
[2016-10-01] MEDS ORDERED: CARBOPROST 250 MCG INJ IM PRN (20:00)
[2016-10-01] MEDS ORDERED: OXYCODONE/ASPIRIN (4.88/325) TAB PO PRN (20:00)
[2016-10-01] MEDS ORDERED: BUTORPHANOL 2 MG INJ IV PRN (20:00)
[2016-10-01] MEDS ORDERED: OXYTOCIN 30 UNITS/LR 500 ML IV SCH ×2 (20:00)
[2016-10-01] MEDS ORDERED: LIDOCAINE 1% (MPF) 30 ML INJ INJ PRN (20:00)
[2016-10-01 20:22] LABS: BASOPHILS % 0.3 % (0.0-2.0); EOSINOPHILS # 0.1 10^3/ul (0.0-0.5); EOSINOPHILS % 1.1 % (0.0-7.0); HEMATOCRIT 34.8 % (37.0-47.0); HEMOGLOBIN 11.4 g/dl (12.0-16.0); LYMPHOCYTES # 1.5 10^3/ul (0.8-2.9); LYMPHOCYTES % 14.8 % (15.0-51.0); MEAN CORPUSCULAR HEMOGLOBIN 26.4 pg (29.0-33.0); MEAN CORPUSCULAR HGB CONC 32.8 g/dl (32.0-37.0); MEAN CORPUSCULAR VOLUME 80.6 fl (82.0-101.0); MONOCYTE # 0.9 10^3/ul (0.3-0.9); MONOCYTES % 8.9 % (0.0-11.0); NEUTROPHIL # 7.3 10^3/ul (1.6-7.5); NEUTROPHILS % 74.3 % (39.0-77.0); PLATELET COUNT 206 10^3/UL (140-415); RED BLOOD COUNT 4.32 10^6/ul (4.20-5.40); RED CELL DISTRIBUTION WIDTH 14.5 % (11.5-14.5); WHITE BLOOD COUNT 9.8 10^3/ul (4.8-10.8)
[2016-10-01] MEDS ORDERED: ALBUTEROL 0.083% (NEB) 2.5 MG/3 ML AMP HHN PRN (20:30)
[2016-10-01] MEDS ORDERED: DIPHENHYDRAMINE 50 MG INJ IV PRN (20:30)
[2016-10-01 20:37] LABS: INR 0.93; PARTIAL THROMBOPLASTIN TIME 25.3 Sec (25.0-35.0); PROTIME 12.5 Sec (12.2-14.2)
[2016-10-01] MEDS: LACTATED RINGER'S 1,000 ML IV SCH (21:10)
[2016-10-02] MEDS: LACTATED RINGER'S 1,000 ML IV SCH (01:38)
[2016-10-02] MEDS ORDERED: FENTAnyl 2MCG/ML-ROPIV 0.2% 100 ML BAG EPI SCH (03:00)
[2016-10-02] MEDS ORDERED: ONDANSETRON 4 MG INJ IV PRN (03:00)
[2016-10-02] MEDS ORDERED: DIPHENHYDRAMINE 50 MG INJ IV PRN (03:00)
[2016-10-02] MEDS ORDERED: NALOXONE (0.4 MG/ML) INJ IV PRN (03:00)
[2016-10-02] MEDS ORDERED: MINERAL OIL LIGHT 10 ML VIAL TOP ONE (05:00)
[2016-10-02] MEDS ORDERED: LACTATED RINGER'S 1,000 ML IV* SCH (06:17)
[2016-10-02] MEDS: OXYTOCIN 30 UNITS/LR 500 ML IV SCH ×2 (06:26→10:27)
--- NOTE | 2016-10-02 06:26 | HP ---
Date/Time of Note Date/Time of Note DATE: 10/02/16 TIME: 06:21 OB - History Hx of Present Free Text/Dictation 36 y.o. A1 with an IUP at 39w 5d came in due to a cough and was found to have a low BISI so was kept for induction of labor. Estimated Due Date: Oct 04, 2016 : 3 Para: 1 Spontaneous : 1 Care: Good Care Ultrasounds: Normal mid trimester US Obstetrical Complications: None Medical Complications: None Past Family/Social History * Past Medical, Surgical, Family and Obstetric Histories reviewed from chart. Blood Type: A+ Rubella: immune RPR/VDRL: Negative GBS Status: Negative HBsAG: Negative OB Admission Exam Vital Signs Vital Signs Vital Signs Date Time Temp Pulse Resp B/P Pulse Ox O2 Delivery O2 Flow Rate FiO2 10/01/16 18:19 97.8 103 18 121/72 98 Room Air Physical Exam HEENT: WNL Heart: Rhythm Normal Lungs: Clear Abdomen: WNL Extremities: Normal Reflexes: Normal Station: -2 Membranes: Intact Amniotic Fluid: Clear Accelerations: Accelerations Present Decelerations: No Decelerations Varibility: Moderate Contractions on Admission: None Last 72 hours Lab Results CBC & BMP 10/01/16 20:10 OB Assessment/Plan Reason for admission: induction of labor Other Assessment: Oligohydramnios Plan: Induction Induction Method: per Pitocin Protocol LIDIA VILLA MD Oct 02, 2016 06:26
--- NOTE | 2016-10-02 06:29 | LDN ---
Date/Time of Note Date/Time of Note DATE: 10/02/16 TIME: 06:27 Delivery Summary od a viable baby girl [id number] grams or 8# 2oz, 21" long, and with Apgars of 8/9. Weeks of Gestation 39w 5d Placenta Delivered: Spontaneously Meconium: none Episiotomy: No Perineal laceration: 2 Laceration repair: Second degree perineal laceration repaired with 2-0 chromic. Anesthesia type: Epidural Estimated blood loss: 200 Sponge & Needle done & correct: Yes All needle counts correct: Yes Any foreign bodies felt in the: No (vagina) Problems: Delivery Information Sex Infant Sex: female Apgars 1 Minute: 8 5 Minute: 9 Suctioning Nose & mouth suctioned at neno: Yes Delee suction performed: No Umbilical Cord Umbilical cord with: 3 Vessels Cord presentations: nuchal cord Nuchal cord present X: 1 Cord Blood was obtained: Yes Mother & Baby Disposition Disposition Mom & Baby to Maternity; Good: Yes Baby to NICU: No LIDIA VILLA MD Oct 02, 2016 06:29
[2016-10-02] MEDS ORDERED: MISOPROSTOL 200 MCG TAB PR PRN (06:30)
[2016-10-02] MEDS ORDERED: OXYCODONE/ASPIRIN (4.88/325) TAB PO PRN (06:30)
[2016-10-02] MEDS ORDERED: LANOLIN 7 GM TUBE TOP PRN (06:30)
[2016-10-02] MEDS ORDERED: OXYTOCIN 30 UNITS/LR 500 ML IV PRN (06:30)
[2016-10-02] MEDS ORDERED: METHYLERGONOVINE 0.2 MG INJ IM PRN (06:30)
[2016-10-02] MEDS ORDERED: CARBOPROST 250 MCG INJ IM PRN (06:30)
[2016-10-02] MEDS ORDERED: BENZOCAINE 20% 56 ML SPRAY TOP PRN (06:30)
[2016-10-02 08:45] VITALS: BP 121/62; PULSE 97; RESP 18
[2016-10-02 09:02] VITALS: BP 120/75; PULSE 84; RESP 18
[2016-10-02] MEDS: IBUPROFEN 600 MG TAB PO SCH ×3 (11:55→23:22)
[2016-10-02 15:31] VITALS: BP 93/63; PULSE 86; RESP 18
[2016-10-02 19:43] VITALS: BP 119/58; PULSE 91; RESP 18
[2016-10-03 04:00] VITALS: BP 101/58; PULSE 85; RESP 20
[2016-10-03] MEDS: IBUPROFEN 600 MG TAB PO SCH ×4 (05:33→23:58)
[2016-10-03 08:00] VITALS: BP 126/59; PULSE 102; RESP 16
[2016-10-03 08:43] LABS: WHITE BLOOD COUNT 8.8 10^3/ul (4.8-10.8)
[2016-10-03 08:44] LABS: BASOPHIL # 0.1 10^3/ul (0.0-0.1); BASOPHILS % 0.6 % (0.0-2.0); EOSINOPHILS # 0.2 10^3/ul (0.0-0.5); EOSINOPHILS % 1.8 % (0.0-7.0); HEMATOCRIT 34.1 % (37.0-47.0); HEMOGLOBIN 10.9 g/dl (12.0-16.0); LYMPHOCYTES # 1.6 10^3/ul (0.8-2.9); LYMPHOCYTES % 17.7 % (15.0-51.0); MEAN CORPUSCULAR HEMOGLOBIN 25.8 pg (29.0-33.0); MEAN CORPUSCULAR VOLUME 80.8 fl (82.0-101.0); MEAN PLATELET VOLUME 11.7 fl (7.4-10.4); MONOCYTES % 11.6 % (0.0-11.0); NEUTROPHILS % 67.5 % (39.0-77.0); PLATELET COUNT 206 10^3/UL (140-415); RED BLOOD COUNT 4.22 10^6/ul (4.20-5.40); RED CELL DISTRIBUTION WIDTH 14.7 % (11.5-14.5)
--- NOTE | 2016-10-03 12:46 | PN ---
Date/Time of Note Date/Time of Note DATE: 10/03/16 TIME: 12:45 OB Subjective Subjective Subjective day 1 Afebrile vital signs are stable complaining of coughing, lungs clear to P&A abdomen soft uterus firm lochia normal extremity normal HARLAN SIERRA MD Oct 03, 2016 12:46
[2016-10-03] MEDS ORDERED: WITCH HAZEL/GLYCERIN PAD PR PRN (13:30)
[2016-10-03] MEDS: AMOXICILLIN 500 MG CAP PO SCH ×2 (13:48→21:22)
[2016-10-03] MEDS: GUAIFENESIN/DM 5ML CUP PO PRN ×2 (13:49→18:28)
[2016-10-03 16:15] VITALS: BP 120/74; PULSE 84; RESP 18
[2016-10-03 20:10] VITALS: BP 111/74; PULSE 81; RESP 18
[2016-10-03] MEDS: SENNA/DOCUSATE NA (8.6MG/50MG) TAB PO SCH (21:22)
[2016-10-04] MEDS: GUAIFENESIN/DM 5ML CUP PO PRN ×2 (01:10→08:35)
[2016-10-04 04:05] VITALS: BP 126/89; PULSE 81; RESP 17
[2016-10-04] MEDS: IBUPROFEN 600 MG TAB PO SCH (05:47)
[2016-10-04] MEDS: AMOXICILLIN 500 MG CAP PO SCH (05:47)
[2016-10-04 08:00] VITALS: BP 113/82; PULSE 81; RESP 18
[2016-10-04] MEDS: SENNA/DOCUSATE NA (8.6MG/50MG) TAB PO SCH (08:36)
[2016-10-04] MEDS ORDERED: DIPHTH/TET/ACEL PERTUSS (ADULT) 0.5 ML VIAL IM* ONE (09:00)
--- NOTE | 2016-10-04 09:38 | DS ---
Date/Time of Note Date/Time of Note DATE: 10/04/16 TIME: 09:36 Discharge Summary Admission/Discharge Info Admit Date/Time Oct 01, 2016 at 20:02 Discharge Date/Time October 04, 2016 at 0 930 Discharge Diagnosis Post normal vaginal delivery Patient Condition: Good Procedures Normal vaginal delivery Hx of Present Illness Term admitted in labor Hospital Course Satisfactory condition post normal vaginal delivery Home Meds Reported Medications Calcium Carbonate* (Calcium Carbonate*) 600 MG Ca Tab, 600 MG PO DAILY, TAB 08/31/16 Vit/Fe Fumarate/Fa* ( Vitamin Tablet*) 1 Tab Tablet, 1 TAB PO DAILY, TAB 10/10/14 Follow-up Plan instructions given recommended to make appointment to be seen at the clinic in 2 weeks Primary Care Provider Care Physician No Primary Time spent on discharge: < 30 minutes HARLAN SIERRA MD Oct 04, 2016 09:38
== END 2016-10-04 13:00 | disposition home or self-care (01) | DRG 775 ==
LOC: OBT 18:06 → L-D 18:06 → OBT 19:24 → L-D 20:02 → PP1 10-02 08:41
PROVIDERS: ADMIT Obstetrics & Gynecology; ATTEND Obstetrics & Gynecology
PROC: 10E0XZZ Delivery of Products of Conception, External Approach (ICD-10-PCS; principal; 2016-10-02)
PROC: 0KQM0ZZ Repair Perineum Muscle, Open Approach (ICD-10-PCS; 2016-10-02)
PROC: 3E033VJ Introduction of Other Hormone into Peripheral Vein, Percutaneous Approach (ICD-10-PCS; 2016-10-02)
PROC: 3E00X4Z Introduction of Serum, Toxoid and Vaccine into Skin and Mucous Membranes, External Approach (ICD-10-PCS; 2016-10-04)
DX: O70.1 Second degree perineal laceration during delivery (principal); Z37.0 Single live birth; O69.81X0 Labor and delivery complicated by cord around neck, without compression, not applicable or unspecified; Z23 Encounter for immunization; Z3A.39 39 weeks gestation of pregnancy
CPT/HCPCS: 62319; 76818; 85025; 85610; 85730; 86592; 86900; 86901; 87340; 90715; G0463; J0595; J1200; J2590; J3010; J7120